=== PATIENT | male | born 1945 | race African-American/Black ===

== ENCOUNTER 2018-05-24 07:42 | Inpatient (IN) | payer MEDICARE, OTHER ==
[~2018-05-24] VITALS: Ht 167.6 cm; Wt 107.5 kg
[2018-05-24] MEDS ORDERED: SODIUM CHLORIDE 0.9% 1,000 ML IV ONE (08:24)
[2018-05-24] MEDS ORDERED: ONDANSETRON HCL 4MG/2ML INJ IV STA (08:24)
[2018-05-24] MEDS ORDERED: MORPHINE SULFATE 10 MG/ML CPJ IV ONE ×2 (08:30→10:15)
[2018-05-24 08:48] LABS: BASOPHILS % 0.3 % (0.0-2.0); EOSINOPHILS % 2.6 % (0.0-5.0); HEMATOCRIT. 30.4 % (42.0-52.0); HEMOGLOBIN. 10.2 g/dL (14.0-18.0); LYMPHOCYTES % 18.8 % (20.0-50.0); MEAN CORPUSCULAR HEMOGLOBIN 29.7 pg (28.0-32.0); MEAN CORPUSCULAR VOLUME 88.5 fL (80.0-94.0); MEAN PLATELET VOLUME 8.7 fl (7.4-10.4); NEUTROPHILS % 69.3 % (40.0-76.0); PLATELET 145 x1000/uL (130-400); RED BLOOD CELL COUNT 3.44 mill/uL (4.7-6.1); RED CELL DISTRIBUTION WIDTH 14.5 % (11.6-14.6)
[2018-05-24 08:54] LABS: CHLORIDE 105 mEq/L (98-107)
[2018-05-24 08:56] LABS: INR 1.1; PROTHROMBIN TIME 10.6 sec (9.1-11.1)
[2018-05-24] MEDS ORDERED: INSU100I28 SQ (09:04)
[2018-05-24] MEDS ORDERED: MELA3TAB PO (09:04)
[2018-05-24] MEDS ORDERED: INSU3INS8 SUBCUT (09:04)
[2018-05-24] MEDS ORDERED: SERT50TA12 PO (09:04)
[2018-05-24] MEDS ORDERED: NIFE30TA83 PO (09:04)
[2018-05-24] MEDS ORDERED: SITA100T11 PO (09:04)
[2018-05-24] MEDS ORDERED: CARV3.1242 PO (09:04)
[2018-05-24] MEDS ORDERED: ATOR10TA69 PO (09:04)
[2018-05-24 10:34] LABS: CLARITY URINE CLEAR (CLEAR); COLOR URINE YELLOW (YELLOW); KETONES URINE NEGATIVE (NEGATIVE); LEUKOCYTE ESTERASE URINE NEGATIVE (NEGATIVE); NITRITE URINE NEGATIVE (NEGATIVE); OCCULT BLOOD URINE NEGATIVE (NEGATIVE); PH URINE 7.5 (4.5-8.0); PROTEIN URINE 2+ (NEGATIVE); SPECIFIC GRAVITY URINE 1.013 (1.005-1.030); UROBILINOGEN URINE 0.2 E.U./dL (0.2-1.0)
[2018-05-24] MEDS ORDERED: IPRATROPIUM/ALBUTEROL 0.5-3(2.5)MG/3ML NEB INH PRN (15:45)
[2018-05-24] MEDS ORDERED: DIPHENHYDRAMINE 50MG/ML VIAL IV PRN (15:45)
[2018-05-24] MEDS ORDERED: CLONIDINE 0.1MG TABLET PO PRN (15:45)
[2018-05-24] MEDS ORDERED: DEXTROSE 50% WATER 50ML SYRINGE IV PRN (15:45)
[2018-05-24] MEDS ORDERED: ONDANSETRON HCL 4MG/2ML INJ IV PRN (15:45)
[2018-05-24] MEDS ORDERED: MAGNESIUM/ALUMINUM HYDROXIDE/SIMETHICONE 30ML UDC PO PRN (15:45)
[2018-05-24] MEDS ORDERED: ACETAMINOPHEN 325MG TABLET PO PRN (15:45)
[2018-05-24] MEDS ORDERED: MAGNESIUM HYDROXIDE 400MG/5ML 30ML UDC PO PRN (15:45)
[2018-05-24] MEDS ORDERED: GUAIFENESIN 200MG/10ML SUGAR FREE UDC PO PRN (15:45)
[2018-05-24] MEDS ORDERED: HYDROCODONE/ACETAMINOPHEN 10/325MG TABLET PO PRN (15:45)
[2018-05-24 17:00] VITALS: BP 123/65
[2018-05-24] MEDS: BLOOD SUGAR DIAGNOSTIC STRIP TEST SCH ×2 (17:20→20:54)
[2018-05-24] MEDS: INSULIN LISPRO 100 UNITS/ML SUBCUT SCH ×2 (17:50→20:54)
[2018-05-24] MEDS: DOCUSATE SODIUM 100MG CAPSULE PO SCH (18:10)
[2018-05-24 20:00] VITALS: BP 150/62
[2018-05-24] MEDS: SERTRALINE HCL 50MG TABLET PO SCH (20:23)
[2018-05-24] MEDS: ATORVASTATIN CALCIUM 10MG TABLET PO SCH (20:23)
[2018-05-24] MEDS: CARVEDILOL 3.125 MG TABLET PO SCH (20:24)
[2018-05-24] MEDS: FAMOTIDINE 20MG/2ML VIAL IV SCH (20:24)
[2018-05-24] MEDS: HYDROMORPHONE HCL/PF 2MG/ML CPJ IV PRN (20:25)
[2018-05-24] MEDS: ENOXAPARIN 30MG/0.3ML SYR SUBCUT SCH (20:28)
[2018-05-24] MEDS ORDERED: NA PHOS,M-B/NA PHOS,DI-BA ENEMA 118ML PR ONE (21:00)
[2018-05-24] MEDS ORDERED: INSULIN GLARGINE UD 100 UNITS/ML SYR SUBCUT SCH (22:00)
[2018-05-24] MEDS: LACTULOSE 20G/30ML UDC PO SCH (22:30)
[2018-05-25] VITALS (7 sets, daily range): BP systolic 107–162; BP diastolic 50–70
[2018-05-25] MEDS: SODIUM CHLORIDE 0.9% INJ 3ML FLUSH IVF SCH ×4 (00:29→21:02)
[2018-05-25] MEDS: HYDROMORPHONE HCL/PF 2MG/ML CPJ IV PRN (06:14)
[2018-05-25] MEDS: LACTULOSE 20G/30ML UDC PO SCH ×3 (06:14→21:02)
[2018-05-25] MEDS: BLOOD SUGAR DIAGNOSTIC STRIP TEST SCH ×4 (07:20→20:10)
[2018-05-25] MEDS: INSULIN LISPRO 100 UNITS/ML SUBCUT SCH ×4 (07:50→21:52)
[2018-05-25] MEDS: ENOXAPARIN 30MG/0.3ML SYR SUBCUT SCH ×2 (08:59→20:10)
[2018-05-25] MEDS: FAMOTIDINE 20MG/2ML VIAL IV SCH ×2 (09:00→20:07)
[2018-05-25] MEDS: NIFEDIPINE XL 30MG TAB PO SCH (09:00)
[2018-05-25] MEDS: KETOROLAC 30MG/ML VIAL IV PRN ×2 (09:01→20:08)
[2018-05-25] MEDS: DOCUSATE SODIUM 100MG CAPSULE PO SCH ×2 (09:02→17:05)
[2018-05-25] MEDS: CARVEDILOL 3.125 MG TABLET PO SCH ×2 (09:03→20:08)
[2018-05-25] MEDS ORDERED: NA PHOS,M-B/NA PHOS,DI-BA ENEMA 118ML PR SCH (13:30)
[2018-05-25] MEDS: DEXT 5%/0.45% NACL 1000ML 1,000 ML IV SCH (15:56)
[2018-05-25] MEDS: ATORVASTATIN CALCIUM 10MG TABLET PO SCH (20:09)
[2018-05-25] MEDS: SERTRALINE HCL 50MG TABLET PO SCH (20:10)
[2018-05-25] MEDS: INSULIN GLARGINE UD 100 UNITS/ML SYR SUBCUT SCH (22:50)
[2018-05-26 04:00] VITALS: BP 148/58
[2018-05-26] MEDS: LACTULOSE 20G/30ML UDC PO SCH ×3 (06:12→21:18)
[2018-05-26] MEDS: SODIUM CHLORIDE 0.9% INJ 3ML FLUSH IVF SCH ×3 (06:13→21:18)
[2018-05-26 07:00] VITALS: BP 146/60
[2018-05-26] MEDS: BLOOD SUGAR DIAGNOSTIC STRIP TEST SCH ×4 (07:20→20:49)
[2018-05-26] MEDS: ENOXAPARIN 30MG/0.3ML SYR SUBCUT SCH ×2 (09:35→20:49)
[2018-05-26] MEDS: DOCUSATE SODIUM 100MG CAPSULE PO SCH ×2 (09:36→17:44)
[2018-05-26] MEDS: NIFEDIPINE XL 30MG TAB PO SCH (09:36)
[2018-05-26] MEDS: CARVEDILOL 3.125 MG TABLET PO SCH ×2 (09:36→20:48)
[2018-05-26] MEDS: FAMOTIDINE 20MG/2ML VIAL IV SCH ×2 (09:36→20:47)
[2018-05-26] MEDS: DEXT 5%/0.45% NACL 1000ML 1,000 ML IV SCH (09:37)
[2018-05-26] MEDS: INSULIN LISPRO 100 UNITS/ML SUBCUT SCH ×4 (10:54→21:17)
[2018-05-26] MEDS: KETOROLAC 30MG/ML VIAL IV PRN (11:49)
[2018-05-26 12:00] VITALS: BP 145/55
[2018-05-26 16:00] VITALS: BP 127/50
[2018-05-26] MEDS ORDERED: IBUPROFEN 600MG TABLET PO PRN (16:45)
[2018-05-26 20:00] VITALS: BP 147/48
[2018-05-26] MEDS: CARISOPRODOL 350 MG TABLET PO PRN (20:47)
[2018-05-26] MEDS: ATORVASTATIN CALCIUM 10MG TABLET PO SCH (20:47)
[2018-05-26] MEDS: INSULIN GLARGINE UD 100 UNITS/ML SYR SUBCUT SCH (21:17)
[2018-05-26] MEDS: SERTRALINE HCL 50MG TABLET PO SCH (21:17)
[2018-05-27] VITALS: BP 151/55
[2018-05-27 04:00] VITALS: BP 151/59
[2018-05-27] MEDS: CARISOPRODOL 350 MG TABLET PO PRN (06:08)
[2018-05-27] MEDS: LACTULOSE 20G/30ML UDC PO SCH ×2 (06:08→14:00)
[2018-05-27] MEDS: SODIUM CHLORIDE 0.9% INJ 3ML FLUSH IVF SCH ×2 (06:18→14:00)
[2018-05-27] MEDS: BLOOD SUGAR DIAGNOSTIC STRIP TEST SCH ×3 (06:20→17:20)
[2018-05-27] MEDS: FAMOTIDINE 20MG/2ML VIAL IV SCH (08:23)
[2018-05-27] MEDS: CARVEDILOL 3.125 MG TABLET PO SCH (08:23)
[2018-05-27] MEDS: DOCUSATE SODIUM 100MG CAPSULE PO SCH ×2 (08:23→17:00)
[2018-05-27] MEDS: NIFEDIPINE XL 30MG TAB PO SCH (08:23)
[2018-05-27] MEDS: ENOXAPARIN 30MG/0.3ML SYR SUBCUT SCH (08:24)
[2018-05-27] MEDS: INSULIN LISPRO 100 UNITS/ML SUBCUT SCH ×2 (08:32→13:12)
[2018-05-27] MEDS: KETOROLAC 30MG/ML VIAL IV PRN (09:16)
[2018-05-27] MEDS ORDERED: LIDOCAINE 5% PATCH TOP SCH ×2 (17:15→18:00)
[2018-05-27] MEDS ORDERED: LIDOCAINE 5% PATCH TOP STA (17:18)
[2018-05-27 17:35] VITALS: BP 151/59
== END 2018-05-27 17:40 | disposition home or self-care (01) | DRG 389 ==
LOC: ER 07:42 → 6EST 12:09 → ENRESERV 14:38
PROVIDERS: ADMIT Internal Medicine; ATTEND Internal Medicine
DX: K56.7 Ileus, unspecified (principal); M48.56XA Collapsed vertebra, not elsewhere classified, lumbar region, initial encounter for fracture; N17.9 Acute kidney failure, unspecified; I10 Essential (primary) hypertension; F43.10 Post-traumatic stress disorder, unspecified; E78.00 Pure hypercholesterolemia, unspecified; E11.9 Type 2 diabetes mellitus without complications; D64.9 Anemia, unspecified; R26.9 Unspecified abnormalities of gait and mobility; R53.81 Other malaise; M48.061 Spinal stenosis, lumbar region without neurogenic claudication; Z85.46 Personal history of malignant neoplasm of prostate; Z90.79 Acquired absence of other genital organ(s); Z88.0 Allergy status to penicillin; Z88.8 Allergy status to other drugs, medicaments and biological substances; Z88.5 Allergy status to narcotic agent; Z91.018 Allergy to other foods; Z79.4 Long term (current) use of insulin; Z79.899 Other long term (current) drug therapy
CPT/HCPCS: 36415; 72100; 72148; 74018; 74176; 82962; 83605; 93005; 93970; 96361; 96374; 96375; 96376; 97162; 97166; 99285; J1170; J1650; J1815; J1885; J2270; J2405; J3490; J7030

== ENCOUNTER → 2018-06-25 | Outpatient (CLI) | payer MEDICARE, OTHER ==
[~2018-06-25] MED LIST: ATOR10TA69 PO; CARV3.1242 PO; INSU100I28 SQ; INSU3INS8 SUBCUT; MELA3TAB PO; NIFE30TA83 PO; SERT50TA12 PO; SITA100T11 PO
== END | disposition home or self-care (01) ==
LOC: MRI 09:49
PROVIDERS: ATTEND Neurological Surgery
DX: M47.812 Spondylosis without myelopathy or radiculopathy, cervical region (principal); M48.02 Spinal stenosis, cervical region; M50.321 Other cervical disc degeneration at C4-C5 level
CPT/HCPCS: 72141

== ENCOUNTER 2018-12-19 18:48 | Inpatient (IN) | payer MEDICARE, OTHER ==
[~2018-12-19] VITALS: Ht 167.6 cm; Wt 110.2 kg
[2018-12-19] MEDS ORDERED: FUROSEMIDE 40MG/4ML VIAL IV ONE (19:45)
[2018-12-19] MEDS ORDERED: ASPIRIN 81MG TABLET PO ONE (19:45)
[2018-12-19 20:16] LABS: BASOPHILS % 0.6 % (0.0-2.0); EOSINOPHILS % 2.4 % (0.0-5.0); HEMATOCRIT. 29.7 % (42.0-52.0); HEMOGLOBIN. 10.1 g/dL (14.0-18.0); LYMPHOCYTES % 21.9 % (20.0-50.0); MEAN CORPUSCULAR HEMOGLOBIN 30.5 pg (28.0-32.0); MEAN PLATELET VOLUME 8.9 fl (7.4-10.4); MONOCYTES % 8.3 % (2.0-8.0); NEUTROPHILS % 66.8 % (40.0-76.0); PLATELET 133 x1000/uL (130-400); RED CELL DISTRIBUTION WIDTH 16.3 % (11.6-14.6)
[2018-12-19 20:17] LABS: CHLORIDE 110 mEq/L (98-107)
[2018-12-19 20:20] LABS: PROTHROMBIN TIME 10.7 sec (9.6-11.0)
[2018-12-19 20:33] LABS: PARTIAL THROMBOPLASTIN TIME < 20.0 sec (23.4-31.0)
[2018-12-19 21:34] LABS: COLOR URINE YELLOW (YELLOW); KETONES URINE NEGATIVE (NEGATIVE); LEUKOCYTE ESTERASE URINE NEGATIVE (NEGATIVE); NITRITE URINE NEGATIVE (NEGATIVE); OCCULT BLOOD URINE TRACE (NEGATIVE); PH URINE 5.5 (4.5-8.0); PROTEIN URINE 2+ (NEGATIVE); SPECIFIC GRAVITY URINE 1.022 (1.005-1.030)
[2018-12-19 21:41] LABS: CLARITY URINE CLOUDY (CLEAR)
[2018-12-19] MEDS ORDERED: INSULIN REGULAR (HUMULIN R) 300UNITS/3ML SUBCUT ONE (23:00)
[2018-12-19] MEDS: SERTRALINE HCL 100MG TABLET PO SCH ×2 (23:21→23:40)
[2018-12-19] MEDS ORDERED: ONDANSETRON HCL 4MG/2ML INJ IV ONE (23:30)
[2018-12-19] MEDS ORDERED: MORPHINE SULFATE 4 MG/ML CPJ (NOT FOR IM USE) IV ONE (23:30)
[2018-12-19] MEDS ORDERED: ACETAMINOPHEN 325MG TABLET PO ONE (23:45)
[2018-12-20 04:00] VITALS: BP 173/56
[2018-12-20] MEDS ORDERED: PRAZOSIN PO (04:49)
[2018-12-20] MEDS ORDERED: FURO40TA5 PO (04:49)
[2018-12-20] MEDS ORDERED: CENTRAL VITE PO (04:49)
[2018-12-20] MEDS ORDERED: ASPI-1158 PO (04:49)
[2018-12-20] MEDS ORDERED: COR3 PO (04:49)
[2018-12-20] MEDS ORDERED: TRAMADOL 50MG TABLET PO PRN (06:00)
[2018-12-20] MEDS ORDERED: DEXTROSE 50% WATER 50ML SYRINGE IV PRN (06:00)
[2018-12-20] MEDS ORDERED: MEDICATION NOT ON FORMULARY EA (Melatonin 3 MG) PO SCH (06:15)
[2018-12-20] MEDS ORDERED: NON FORMULARY PATIENT HOME MED XX SCH (06:15)
[2018-12-20] MEDS: BLOOD SUGAR DIAGNOSTIC STRIP TEST SCH ×4 (06:48→21:00)
[2018-12-20] MEDS: INSULIN LISPRO 100 UNITS/ML SUBCUT SCH ×4 (06:48→22:24)
[2018-12-20 08:00] VITALS: BP 153/48
[2018-12-20] MEDS ORDERED: CARVEDILOL 3.125 MG TABLET PO SCH (09:00)
[2018-12-20] MEDS ORDERED: NIFEDIPINE 30 MG PO SCH (09:00)
[2018-12-20] MEDS ORDERED: FUROSEMIDE 40MG/4ML VIAL IVP SCH (09:00)
[2018-12-20] MEDS ORDERED: FUROSEMIDE 40MG TABLET PO SCH (09:00)
[2018-12-20] MEDS ORDERED: MEDICATION NOT ON FORMULARY EA (Aspirin (Aspirin Ec) 81 MG) PO SCH (09:00)
[2018-12-20] MEDS: ASPIRIN 81MG EC TABLET PO SCH (09:11)
[2018-12-20] MEDS: NIFEDIPINE XL 30MG TAB PO SCH (09:11)
[2018-12-20] MEDS: CARVEDILOL 3.125 MG TABLET PO SCH ×2 (09:12→22:08)
[2018-12-20] MEDS: ENOXAPARIN 30MG/0.3ML SYR SUBCUT SCH ×2 (09:12→22:09)
[2018-12-20] MEDS: LINAGLIPTIN 5MG TABLET PO SCH (09:12)
[2018-12-20 11:15] LABS: CHLORIDE 107 mEq/L (98-107)
[2018-12-20 11:19] LABS: BASOPHILS % 0.5 % (0.0-2.0); EOSINOPHILS % 2.1 % (0.0-5.0); HEMOGLOBIN. 10.2 g/dL (14.0-18.0); LYMPHOCYTES % 19.7 % (20.0-50.0); MEAN CORPUSCULAR HEMOGLOBIN 30.6 pg (28.0-32.0); MEAN PLATELET VOLUME 9.5 fl (7.4-10.4); MONOCYTES % 8.7 % (2.0-8.0); PLATELET 138 x1000/uL (130-400); RED BLOOD CELL COUNT 3.34 mill/uL (4.7-6.1); RED CELL DISTRIBUTION WIDTH 16.6 % (11.6-14.6)
[2018-12-20 11:24] LABS: LDL CHOLESTEROL 73 mg/dL (5-100)
[2018-12-20 11:29] LABS: HDL CHOLESTEROL 44 mg/dL (40-59)
[2018-12-20 12:00] VITALS: BP 139/49
[2018-12-20] MEDS ORDERED: SIMETHICONE 80MG TABLET CHEW PO PRN ×2 (12:15→19:00)
[2018-12-20] MEDS: PANTOPRAZOLE 40MG DR TABLET PO SCH (12:38)
[2018-12-20 14:35] LABS: *AMPHETAMINES SCREEN URINE NEGATIVE (NEGATIVE); *BARBITURATES SCREEN URINE NEGATIVE (NEGATIVE); *BENZODIAZEPINES SCREEN URINE NEGATIVE (NEGATIVE)
[2018-12-20 14:36] LABS: *COCAINE SCREEN URINE NEGATIVE (NEGATIVE); CANNABINOID URINE SCREEN NEGATIVE (NEGATIVE); METHADONE URINE SCREEN NEGATIVE (NEGATIVE); OPIATES URINE SCREEN NEGATIVE (NEGATIVE); PHENCYCLIDINE URINE SCREEN NEGATIVE (NEGATIVE)
[2018-12-20 16:00] VITALS: BP 134/63
[2018-12-20] MEDS ORDERED: IPRATROPIUM/ALBUTEROL 0.5-3(2.5)MG/3ML NEB HHN PRN (16:15)
[2018-12-20 20:00] VITALS: BP 131/62
[2018-12-20] MEDS ORDERED: PRAZ2CAP2 MT (20:19)
[2018-12-20] MEDS ORDERED: MULT-1146 MT (20:19)
[2018-12-20] MEDS ORDERED: PRAZOSIN HCL 1MG CAPSULE PO SCH (21:00)
[2018-12-20] MEDS ORDERED: ATORVASTATIN CALCIUM 10MG TABLET PO SCH (21:00)
[2018-12-20] MEDS ORDERED: PRAZOSIN PO SCH (21:00)
[2018-12-21] VITALS (7 sets, daily range): BP systolic 130–161; BP diastolic 51–64
[2018-12-21] MEDS: PANTOPRAZOLE 40MG DR TABLET PO SCH (06:23)
[2018-12-21] MEDS: BLOOD SUGAR DIAGNOSTIC STRIP TEST SCH ×3 (06:27→17:27)
[2018-12-21] MEDS: INSULIN LISPRO 100 UNITS/ML SUBCUT SCH ×3 (06:27→17:48)
[2018-12-21 07:40] LABS: BASOPHILS % 0.4 % (0.0-2.0); EOSINOPHILS % 1.7 % (0.0-5.0); HEMATOCRIT. 29.1 % (42.0-52.0); LYMPHOCYTES % 24.2 % (20.0-50.0); MEAN CORPUSCULAR HEMOGLOBIN 30.7 pg (28.0-32.0); MEAN CORPUSCULAR VOLUME 89.7 fL (80.0-94.0); MEAN PLATELET VOLUME 9.4 fl (7.4-10.4); MONOCYTES % 7.1 % (2.0-8.0); NEUTROPHILS % 66.6 % (40.0-76.0); PLATELET 123 x1000/uL (130-400); RED BLOOD CELL COUNT 3.25 mill/uL (4.7-6.1); RED CELL DISTRIBUTION WIDTH 16.1 % (11.6-14.6)
[2018-12-21] MEDS ORDERED: ASPIRIN 81MG TABLET PO SCH (09:00)
[2018-12-21] MEDS: LINAGLIPTIN 5MG TABLET PO SCH (09:17)
[2018-12-21] MEDS: CARVEDILOL 3.125 MG TABLET PO SCH (09:17)
[2018-12-21] MEDS: NIFEDIPINE XL 30MG TAB PO SCH (09:18)
[2018-12-21] MEDS: ENOXAPARIN 30MG/0.3ML SYR SUBCUT SCH (09:18)
[2018-12-21] MEDS: ASPIRIN 81MG EC TABLET PO SCH (09:18)
[2018-12-21 14:20] LABS: CREATINE KINASE 46 IU/L (39-308)
[2018-12-21] MEDS ORDERED: FUROSEMIDE 40MG/4ML VIAL IVP NR (15:00)
[2018-12-21] MEDS ORDERED: PANT40TA4 PO (16:18)
[2018-12-21] MEDS ORDERED: IPRATROPIUM/ALBUTEROL 0.5-3(2.5)MG/3ML NEB HHN SCH (18:00)
== END 2018-12-21 20:00 | disposition home or self-care (01) | DRG 291 ==
LOC: ER 18:48 → 8WST 23:26 → EDBEDREQTM 23:30 → EDBEDREQ 23:30 → ENRESERV 12-20 02:58
PROVIDERS: ADMIT Internal Medicine; ATTEND Internal Medicine
DX: I13.0 Hypertensive heart and chronic kidney disease with heart failure and stage 1 through stage 4 chronic kidney disease, or unspecified chronic kidney disease (principal); J96.00 Acute respiratory failure, unspecified whether with hypoxia or hypercapnia; I50.33 Acute on chronic diastolic (congestive) heart failure; I50.32 Chronic diastolic (congestive) heart failure; N17.9 Acute kidney failure, unspecified; J44.9 Chronic obstructive pulmonary disease, unspecified; E11.65 Type 2 diabetes mellitus with hyperglycemia; D64.9 Anemia, unspecified; E66.9 Obesity, unspecified; D72.821 Monocytosis (symptomatic); E11.22 Type 2 diabetes mellitus with diabetic chronic kidney disease; I70.0 Atherosclerosis of aorta; R07.89 Other chest pain; K76.9 Liver disease, unspecified; K80.20 Calculus of gallbladder without cholecystitis without obstruction; M85.80 Other specified disorders of bone density and structure, unspecified site; N18.9 Chronic kidney disease, unspecified; Z88.6 Allergy status to analgesic agent; Z91.010 Allergy to peanuts; Z88.0 Allergy status to penicillin; Z91.013 Allergy to seafood; Z85.46 Personal history of malignant neoplasm of prostate; Z72.0 Tobacco use; Z79.4 Long term (current) use of insulin; Z79.899 Other long term (current) drug therapy; Z68.39 Body mass index [BMI] 39.0-39.9, adult
CPT/HCPCS: 36415; 71045; 76700; 80048; 80061; 80305; 82550; 82728; 82962; 83036; 83540; 83550; 83735; 83880; 84443; 84484; 93005; 93306; 93970; 96372; 96374; 96375; 99285; J1650; J1815; J1940; J2270; J2405; J7620